=== PATIENT | female | born 1945 | race Caucasian/White ===

== ENCOUNTER 2016-05-10 20:25 | Emergency (ER) | payer SELFPAY ==
[2016-05-10] MEDS ORDERED: OXYMETAZOLINE 30 ML NASAL SPRAY ONE (21:10)
--- NOTE | 2016-05-10 21:19 | EDPHY ---
H & P Time Seen by Provider: 05/10/16 21:01 HPI/ROS: CHIEF COMPLAINT: Nosebleed HISTORY OF PRESENT ILLNESS: 71-year-old female presents with a nosebleed. Onset of bleeding from the left naris at 6:30 p.m.. The nosebleed was mild to moderate and continued despite pressure on the nose. Blood started coming from her left eye and she became especially concerned. No other associated sx. No alleviating/agrevating factors. No prior history of frequent nosebleeds and no recent URI sx. She is not on anticoagulants. REVIEW OF SYSTEMS: Constitutional: No fever, no chills Eyes: No visual changes ENT: No sore throat Respiratory: No cough, no shortness of breath Cardiac: No chest pain Gastrointestinal: No nausea, no vomiting, no abdominal pain Genitourinary: No hematuria Musculoskeletal: No leg pain or swelling Skin: No rash Neurological: No headache, no weakness Psychiatric: No anxiety Past Medical/Surgical History: Depression Social History: Smoking Status: Never smoked Physical Exam: General Appearance: Alert, pleasant Eyes: Pupils equal and round, bright red blood in the left conjunctival sac ENT, Mouth: blood clots in both nares, no active bleeding, large septal detect present, no post pharyngeal blood Neck: Normal inspection Respiratory: Lungs are clear to auscultation Cardiovascular: Regular rate and rhythm Neurological: A&O, nonfocal, normal gait Skin: Warm and dry, no rash Psychiatric: Mood and affect normal Constitutional: Initial Vital Signs Temperature (C) 36.2 C 05/10/16 20:33 Heart Rate 72 05/10/16 20:33 Respiratory Rate 16 05/10/16 20:33 Blood Pressure 165/98 H 05/10/16 20:33 O2 Sat (%) 96 05/10/16 20:33 O2 Delivery Mode Room Air Allergies/Adverse Reactions: No Known Allergies Allergy (Unverified 11/18/10 09:55) Home Medications: Medication Instructions Recorded Herbals/Supplements -Info Only 1 ea PO AD 02/02/16 Escitalopram Oxalate [Lexapro 10 10 mg PO DAILY #30 tab 03/07/16 MG] risperiDONE [Risperdal] 2 mg PO HS #30 tab 03/07/16 Medical Decision Making Procedures: Procedure: Epistaxis control. Indication: nosebleed not controlled by direct pressure. Risks, benefits, alternatives discussed with patient and consent obtained. Afrin placed within the left nares. The anterior epistaxis location was not identified. A long Merocel nasal packing was placed. The bleeding stopped for approx 15 minutes during an obs period, then blood started ozzing from the left nares. Given the large septal defect, likely the left sided packing was not exerting sufficient pressure to stop the bleeding, so I placed a short right sided Merocel packing. After this, the bleeding stopped. I observed her for 20 minutes and there was no recurrent bleeding. Differential Diagnosis: includes though is not limited to coagulopathy, severe anemia, hypotension, uncontrolled hypertension. Departure - Departure Disposition: Home, Routine, Self-Care Clinical Impression: Acute anterior epistaxis Condition: Good Instructions: Nosebleed (ED) Additional Instructions: If the nosebleed recurs, use the nasal clip for 15 minutes. If you continue to have bleeding that does not stop, return to the emergency department. Referrals: Georgina Luis MD [Medical Doctor] - 1 day, if not improved
[2016-05-10 22:09] VITALS: BP 179/103; PULSE 77; RESP 18; TEMP 98.1; O2SAT 93
== END 2016-05-10 22:42 | disposition home or self-care (01) ==
PROC: 2Y41X5Z Packing of Nasal Region using Packing Material (ICD-10-PCS; principal; 2016-05-10)
DX: R04.0 Epistaxis (principal)

== ENCOUNTER 2016-07-19 18:11 | Emergency (ER) | payer OTHER ==
--- NOTE | 2016-07-19 18:50 | EDPHY ---
H & P Smoking Status: Never smoked Time Seen by Provider: 07/19/16 18:36 HPI/ROS: CHIEF COMPLAINT: Depression with suicidal ideation HISTORY OF PRESENT ILLNESS: Patient was sent from the [facility] on a hold for suicidal ideation, plan to overdose. She has had previous hospitalizations for suicidal ideation. Denies any medical complaints. REVIEW OF SYSTEMS: Eye: no change in vision ENT: no sore throat Cardiac: no chest pain or syncope Pulmonary: no cough or SOB Abdomen: no vomiting, diarrhea, abdominal pain Musculoskeletal: no back pain Skin: no rash Neuro: no headache Constitutional: no fever : no urinary symptoms A comprehensive 10 point review of systems is otherwise negative aside from elements mentioned in the history of present illness. PAST MEDICAL HISTORY: Depression and hernia repair Social history: Occasional wine, no alcohol or drugs General Appearance: Alert and conversant, cooperative. Eyes: No scleral icterus. ENT, Mouth: Normal mucous membranes. Respiratory: Normal respiratory effort, breath sounds equal, lungs are clear to auscultation. Cardiovascular: Regular rate and rhythm. Gastrointestinal: Abdomen is soft and non tender. Neurological: Alert and oriented x3. Normally conversant. Face symmetric, normal movement and sensation in all extremities. Skin: Warm and dry, no rashes. Musculoskeletal: No peripheral edema and no joint swelling. Psychiatric: Flat affect. Emergency Department course/MDM: The patient had a medical screening evaluation performed. There does not appear to be an acute emergent medical or surgical condition which would preclude psychiatric evaluation at this time. Mental health evaluation is requested at 1900. 2130: Mental health evaluators; the plan is to admit the patient to a CSU. Signed out to Adria with disposition pending at 2300. (Jose Lafleur) Constitutional: Initial Vital Signs Temperature (C) 36.8 C 07/19/16 18:30 Heart Rate 76 07/19/16 18:30 Respiratory Rate 18 07/19/16 18:30 Blood Pressure 155/88 H 07/19/16 18:30 O2 Sat (%) 93 07/19/16 18:30 O2 Delivery Mode Room Air Allergies/Adverse Reactions: No Known Allergies Allergy (Unverified 11/18/10 09:55) Home Medications: Medication Instructions Recorded Herbals/Supplements -Info Only 1 ea PO AD 02/02/16 risperiDONE [Risperdal] 2 mg PO HS #30 tab 03/07/16 Virum 07/19/16 Medical Decision Making ED Course/Re-evaluation: Patient has been accepted at [facility] in [place] by Dr. Nani Win. Appropriate paperwork has been filled out. Patient remains stable (Norman Ortiz) 2300 care assumed by me from Dr. Lafleur pending placement. [address] Cook pending placement. No issues during my care this patient. (Parveen Covington) Differential Diagnosis: Differential diagnosis considered for depression including functional and major depression, situational depression, medication side effect, drugs and alcohol abuse. (Jose Lafleur) Other Provider: I assumed care of the patient at 0700. She remained stable on my shift throughout the emergency department. Her placement is still currently pending. Patient will be turned over to Dr. Norman Ortiz at shift change. (Farrukh Cook) - Data Points Laboratory Results: Laboratory Results 07/19/16 18:52 07/19/16 18:52 Medications Given: Discontinued Medications Risperidone (Risperdal) 1.5 mg PO EDNOW ONE Stop: 07/20/16 00:13 Last Admin: 07/20/16 00:44 Dose: 1.5 mg Departure - Departure Disposition: Other Psych, Not [place] Clinical Impression: Severe major depression Condition: Good Referrals: Patient,NotPresent [Unknown] - As per Instructions
[2016-07-19 19:01] LABS: % IMMATURE GRANULYOCYTES 0.3 % (0.0-1.1); ABSOLUTE IMMATURE GRANULOCYTES 0.02 10^3/uL (0.00-0.10); ADD DIFF? NO; ADD MORPH? NO; ADD SCAN? NO; ATYPICAL LYMPHOCYTE FLAG 0 (0-99); FRAGMENT RBC FLAG 0 (0-99); HEMATOCRIT 48.5 % (38.0-47.0); HEMOGLOBIN 15.9 g/dL (12.6-16.3); LEFT SHIFT FLG 0 (0-99); LIPEMIA HEMOLYSIS FLAG 80 (0-99); MEAN CELL HEMOGLOBIN 30.8 pg (27.9-34.1); MEAN CELL HEMOGLOBIN CONCENTR. 32.8 g/dL (32.4-36.7); MEAN CELL VOLUME 93.8 fL (81.5-99.8); MEAN PLATELET VOLUME 9.1 fL (8.7-11.7); PLATELET CLUMPS FLAG 20 (0-99); PLATELET COUNT 306 10^3/uL (150-400); RED BLOOD CELL COUNT 5.17 10^6/uL (4.18-5.33); RED CELL DISTRIBUTION WIDTH 13.7 % (11.5-15.2)
[2016-07-19 19:26] LABS: ANION GAP 12 mEq/L (8-16); CARBON DIOXIDE 28 mEq/l (22-31); CHLORIDE 100 mEq/L (97-110); CREATININE 0.9 mg/dL (0.6-1.0); ETHANOL SERUM < 10 mg/dL (0-10); GLOMERULAR FILTRATION RATE > 60; GLUCOSE 98 mg/dL (70-100); POTASSIUM 4.4 mEq/L (3.5-5.2); SALICYLATE < 1.0 mg/dL (2.0-20.0); SODIUM 140 mEq/L (134-144)
[2016-07-20] MEDS ORDERED: risperiDONE 1 MG TAB PO ONE (00:12)
[2016-07-20 00:47] VITALS: RESP 16
[2016-07-20 16:34] VITALS: BP 145/88; PULSE 66; TEMP 98.2; O2SAT 96
== END 2016-07-20 16:31 ==
LOC: EDUNIT# → EDBD
DX: F32.2 Major depressive disorder, single episode, severe without psychotic features (principal)
CPT/HCPCS: 80305; G0480